=== PATIENT | male | born 1995 | race African-American/Black ===

== ENCOUNTER 2022-02-04 20:00 | Emergency (ER) | payer OTHER, SELFPAY ==
--- NOTE | ~2022-02-04 | XR_ITS ---
EXAMINATION: XR ankle RT min 3V DATE: 02/04/2022 21:00 INDICATION: Right ankle injury and pain. TECHNIQUE: 4 views of right ankle were obtained. COMPARISON: None. FINDINGS: Bone alignment is normal. There is a chip fracture of lateral process of talus. Joint space s are normal. There are enthesophytes at the posterior and plantar aspects of calcaneal tuberosity. A nkle soft tissue swelling is noted. IMPRESSION: 1. Chip fracture of lateral process of talus. Reviewed, dictated and finalized at location A.
[2022-02-04 20:03] VITALS: BP 158/107; PULSE 80; RESP 16; TEMP 37.2; O2SAT 100
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
[2022-02-04] MEDS: ACETAMINOPHEN 325 MG TABLET 650 MG PO (21:38)
[2022-02-04] MEDS: IBUPROFEN 600 MG TABLET PO (21:38)
--- NOTE | 2022-02-04 22:18 | PC.NURSE ---
Right Ankle Short leg OCL applied. PMI distally. ERP evlautated pt tolerated well. Educated on signs of compression syndrome.
== END 2022-02-04 22:35 | disposition home or self-care (01) ==
PROVIDERS: Emergency Provider Emergency Medicine
DX: S92.141A Displaced dome fracture of right talus, initial encounter for closed fracture (principal); V49.40XA Driver injured in collision with unspecified motor vehicles in traffic accident, initial encounter
CPT/HCPCS: 29515; 73610; 99284; A9270

== ENCOUNTER 2023-04-05 11:00 | Emergency (ER) | payer BC, SELFPAY ==
[2023-04-05] VITALS (22 sets, daily range): BP systolic 161–212; BP diastolic 97–140; PULSE 59–88; RESP 13–24; TEMP 36.2–36.8; O2SAT 93–100
--- NOTE | ~2023-04-05 | XR_ITS ---
XR chest 2V DATE: 04/05/2023 14:16 INDICATION: Shortness of breath, hypertension TECHNIQUE: AP and lateral views COMPARISON: None FINDINGS: Heart size is within normal range. No hilar or mediastinal enlargement. No pulmonary infilt rate or consolidation, pleural effusion or pulmonary vascular congestion or pneumothorax is detected. Slight thoracic levoscoliosis. IMPRESSION: No active cardiopulmonary disease Reviewed, dictated and finalized at location L. R SPECIALIST
--- NOTE | 2023-04-05 13:41 | ECG_ITS ---
Measurements Intervals [place] Rate: 66 P: 38 WA: 173 QRS: -33 QRSD: 96 T: 36 QT: 373 QTc: 392 Interpretive Statements SINUS RHYTHM VENTRICULAR PREMATURE COMPLEX LEFT AXIS DEVIATION VOLTAGE CRITERIA FOR LVH BORDERLINE R WAVE PROGRESSION, ANTERIOR LEADS BASELINE ARTIFACT- II, III, AVL BORDERLINE ECG NO PREVIOUS ECG AVAILABLE FOR COMPARISON Electronically Signed On 04-05-2023 14:58:17 [employer] by Garfield Marshall D.O.
--- NOTE | 2023-04-05 13:43 | ED.GENADULT ---
HPI - General Adult General Chief complaint: Recheck/Abnormal Lab/Rx Stated complaint: high BP at PCP office today (no history) Time Seen by Provider: 04/05/23 19:14 History of Present Illness HPI narrative: Grey Bhagat is a 27 y/o male who presents today from his PCP office to be evaluated for his elevated b/p. Patient does not take any mediations daily went to his PCP appointment today and his b/p was elevated. Denies chest pain/ SOB/ vision changes/ headache. Related Data Home Medications Medication Instructions Recorded Confirmed ibuprofen 100 mg/5 mL oral 400 mg PO QID 02/11/22 03/11/22 suspension Allergies Allergy/AdvReac Type Severity Reaction Status Date / Time No Known Allergies Allergy Verified 03/11/22 13:49 [facility] Family History Family History (Updated 02/11/22 @ 11:51 by Marylou Montano MA) Unknown Cancer Social History Social History (Updated 03/11/22 @ 13:50 by Marylou Montano MA) Smoking status: Never smoker Alcohol intake: never Substance use: never Lack of Transportation: No Lack of Food: Sometimes True Current Housing: Decline to Answer Concerned About Future Housing: No Difficulty Paying Gas/Electric Bills: No Difficulty Paying for Meds: No Currently Unemployed: YES Education: Associate Degree Difficulty w/ Childcare or Family Care: No Course Vital Signs Vital signs: Vital Signs Temperature 36.2 C L 04/05/23 11:09 Pulse Rate 88 04/05/23 11:09 Respiratory Rate 18 04/05/23 11:09 Blood Pressure 183/129 H 04/05/23 11:09 Pulse Oximetry 100 04/05/23 11:09 Oxygen Delivery Room Air 04/05/23 11:09 Temperature 36.8 C 04/05/23 14:40 Pulse Rate 80 04/05/23 21:50 Respiratory Rate 19 04/05/23 21:50 Blood Pressure 161/100 H 04/05/23 21:50 Pulse Oximetry 100 04/05/23 21:50 Oxygen Delivery Room Air 04/05/23 11:09 Medical Decision Making Vital Signs Vital Signs: Vital Signs Temperature 36.2 C L 04/05/23 11:09 Pulse Rate 88 04/05/23 11:09 Respiratory Rate 18 04/05/23 11:09 Blood Pressure 183/129 H 04/05/23 11:09 Pulse Oximetry 100 04/05/23 11:09 Oxygen Delivery Room Air 04/05/23 11:09 Temperature 36.8 C 04/05/23 14:40 Pulse Rate 80 04/05/23 21:50 Respiratory Rate 19 04/05/23 21:50 Blood Pressure 161/100 H 04/05/23 21:50 Pulse Oximetry 100 04/05/23 21:50 Oxygen Delivery Room Air 04/05/23 11:09 Lab Data 04/05/23 14:59 04/05/23 15:00 Labs: Lab Results 04/05/23 04/05/23 Range/Units 14:59 15:00 WBC 5.1 (4.5-10.0) K/mm3 RBC 6.02 (4.6-6.20) M/mm3 Hgb 15.7 (14.0-18.0) g/dL Hct 48.9 (42.0-52.0) % MCV 81.2 (80-100) fl MCH 26.1 (26-34) pg MCHC 32.1 (32-36) g/dl RDW 13.0 (11.5-14.5) % Plt Count 257 (150-375) k/mm3 MPV 9.8 (7.4-10.4) fl Immature Gran % (Auto) 0.4 (0-0.5) % Neut % (Auto) 42.5 L (45.5-73.1) % Lymph % (Auto) 37.5 (18.3-44.2) % [place] % (Auto) 17.6 H (2.6-8.5) % Eos % (Auto) 1.4 (0-4.4) % Baso % (Auto) 0.6 (0.2-1.2) % Lymph # (Auto) 1.92 (0.9-3.2) K/mm3 [place] # (Auto) 0.9 H (0.1-0.6) K/mm3 Eos # (Auto) 0.1 (0-0.3) K/mm3 Baso # (Auto) 0.0 (0.0-0.1) K/mm3 Abs Immat Gran (auto) 0.02 (0.00-0.031) K/mm3 Absolute Neuts (auto) 2.2 (1.3-6.7) K/mm3 Absolute Nucleated RBC 0.0 (0.0-0.012) K/mm3 Nucleated RBC % 0.0 (0.0-0.2) % Sodium Cancelled 141 Potassium Cancelled 3.7 Chloride Cancelled 103 Carbon Dioxide Cancelled 27 Anion Gap Cancelled 11 BUN Cancelled 11 Creatinine Cancelled 1.10 Estim Creat Clear Calc Cancelled 121 Estimated GFR Cancelled > 60 Glucose Cancelled 92 Calcium Cancelled 8.8 Total Bilirubin Cancelled 0.9 AST Cancelled 39 ALT Cancelled 25 Alkaline Phosphatase Cancelled 54 Troponin I < 0.012 (0.000-0.034) ng/mL Total Protein Cancelled 9.0 H Albumin Ca
[2023-04-05 15:15] LABS: Alanine Aminotransferase 25 U/L (6-50); Albumin Level 4.6 g/dL (3.5-5.1); Alkaline Phosphatase 54 U/L (38-126); Anion Gap 11 mmol/L (8-16); Aspartate Amino Transferase 39 U/L (17-59); Bilirubin,Total 0.9 mg/dL (0.2-1.3); Blood Urea Nitrogen 11 mg/dL (9-20); Calcium 8.8 mg/dL (8.4-10.2); Carbon Dioxide 27 mmol/L (22-30); Chloride 103 mmol/L (98-107); Estimated CRCL calculation 121 ml/min; Estimated Glomerular Filt Rate > 60; Glucose 92 mg/dL (65-110); Lipase 55 U/L (23-300); Potassium 3.7 mmol/L (3.4-5.0); Sodium 141 mmol/L (137-145)
[2023-04-05 15:18] LABS: Basophils Percent Auto 0.6 % (0.2-1.2); Eosinophils Absolute Auto 0.1 K/mm3 (0-0.3); Eosinophils Percent Auto 1.4 % (0-4.4); Hematocrit 48.9 % (42.0-52.0); Hemoglobin 15.7 g/dL (14.0-18.0); Immature Granulocyte Absolute 0.02 K/mm3 (0.00-0.031); Immature Granulocyte Percent A 0.4 % (0-0.5); Lymphocytes Absolute Auto 1.92 K/mm3 (0.9-3.2); Lymphocytes Percent Auto 37.5 % (18.3-44.2); Mean Corpuscular HGB Conc 32.1 g/dl (32-36); Mean Corpuscular Hemoglobin 26.1 pg (26-34); Mean Corpuscular Volume 81.2 fl (80-100); Mean Platelet Volume 9.8 fl (7.4-10.4); Monocytes Absolute Auto 0.9 K/mm3 (0.1-0.6); Monocytes Percent Auto 17.6 % (2.6-8.5); Neutrophils Absolute Auto 2.2 K/mm3 (1.3-6.7); Neutrophils Percent Auto 42.5 % (45.5-73.1); Platelet Count Result 257 k/mm3 (150-375); Red Blood Count 6.02 M/mm3 (4.6-6.20); White Blood Count 5.1 K/mm3 (4.5-10.0)
[2023-04-05 15:27] LABS: Troponin I < 0.012 ng/mL (0.000-0.034)
--- NOTE | 2023-04-05 19:55 | ED.GENADULT ---
HPI - General Adult General Chief complaint: Recheck/Abnormal Lab/Rx Stated complaint: high BP at PCP office today (no history) Time Seen by Provider: 04/05/23 19:14 History of Present Illness HPI narrative: Pt sent to the ER byhis PCP office. He saw the provider today for the first time and his blood pressure was elevated. He was told to come to the ER to get it down then they will see him on Tuesday this week. He denies symptoms. He has had hypertension for awhile but unsure how long. 6 months ago he went to the dentist and was told his pressure was elevated but he did not follow up Related Data Home Medications Medication Instructions Recorded Confirmed ibuprofen 100 mg/5 mL oral 400 mg PO QID 02/11/22 03/11/22 suspension Allergies Allergy/AdvReac Type Severity Reaction Status Date / Time No Known Allergies Allergy Verified 03/11/22 13:49 Review of Systems Review of Systems: pt denies all ROS PMFSH Family History Family History (Updated 02/11/22 @ 11:51 by Marylou Montano MA) Unknown Cancer Social History Social History (Updated 03/11/22 @ 13:50 by Marylou Montano MA) Smoking status: Never smoker Alcohol intake: never Substance use: never Lack of Transportation: No Lack of Food: Sometimes True Current Housing: Decline to Answer Concerned About Future Housing: No Difficulty Paying Gas/Electric Bills: No Difficulty Paying for Meds: No Currently Unemployed: YES Education: Associate Degree Difficulty w/ Childcare or Family Care: No Exam Narrative: GENERAL: Well-appearing, well-nourished, and in no acute distress. HEAD: Normocephalic, atraumatic. EYES: PERRLA and EOMI. ENT: Nares clear, no rhinorrhea or epistaxis. Mucous membranes moist. NECK: Supple. CHEST: Clear to auscultation. No respiratory distress. HEART: Regular rate and rhythm. ABDOMEN: Soft, nontender, nondistended. EXTREMITIES: Normal range of motion. No edema. SKIN: Warm, dry, no rash. NEURO: No focal deficits. Alert and oriented x3. PSYCH: Normal mood and affect. Course Course Emergency Course: BP very elevated at triage. He is asymptomatic consistent with chronic HTN. Labs including creatinine normal. amlodipine and hydralazine ordered. will d/c once bp under 180/100 21:36 - BP improved and will d/c Vital Signs Vital signs: Vital Signs Temperature 36.2 C L 04/05/23 11:09 Pulse Rate 88 04/05/23 11:09 Respiratory Rate 18 04/05/23 11:09 Blood Pressure 183/129 H 04/05/23 11:09 Pulse Oximetry 100 04/05/23 11:09 Oxygen Delivery Room Air 04/05/23 11:09 Temperature 36.8 C 04/05/23 14:40 Pulse Rate 65 04/05/23 18:53 Respiratory Rate 17 04/05/23 18:53 Blood Pressure 212/129 H 04/05/23 19:05 Pulse Oximetry 100 04/05/23 18:53 Oxygen Delivery Room Air 04/05/23 11:09 Medical Decision Making Vital Signs Vital Signs: Vital Signs Temperature 36.2 C L 04/05/23 11:09 Pulse Rate 88 04/05/23 11:09 Respiratory Rate 18 04/05/23 11:09 Blood Pressure 183/129 H 04/05/23 11:09 Pulse Oximetry 100 04/05/23 11:09 Oxygen Delivery Room Air 04/05/23 11:09 Temperature 36.8 C 04/05/23 14:40 Pulse Rate 65 04/05/23 18:53 Respiratory Rate 17 04/05/23 18:53 Blood Pressure 212/129 H 04/05/23 19:05 Pulse Oximetry 100 04/05/23 18:53 Oxygen Delivery Room Air 04/05/23 11:09 Lab Data 04/05/23 14:59 04/05/23 15:00 Labs: Lab Results 04/05/23 04/05/23 Range/Units 14:59 15:00 WBC 5.1 (4.5-10.0) K/mm3 RBC 6.02 (4.6-6.20) M/mm3 Hgb 15.7 (14.0-18.0) g/dL Hct 48.9 (42.0-52.0) % MCV 81.2 (80-100) fl MCH 26.1 (26-34) pg MCHC 32.1 (32-36) g/dl RDW 13.0 (11.5-14.5) % Plt Count 257 (150-375) k/mm3 MPV 9.8 (7.4-10.4) fl Immature Gran % (Auto) 0.4 (0-0.5) % Neut % (Auto) 42.5 L (45.5-73.1) % Lymph % (Auto) 37.5 (18.3-44.2) % [place] % (Auto) 17.6 H
[2023-04-05] MEDS: amLODIPine BESYLATE 5 MG TABLET 10 MG PO (20:19)
[2023-04-05] MEDS: hydrALAZINE HCL 25 MG TABLET PO (20:19)
== END 2023-04-05 21:50 | disposition home or self-care (01) ==
PROVIDERS: Nurse Practitioner Family; Emergency Provider Emergency Medicine
DX: I10 Essential (primary) hypertension (principal)
CPT/HCPCS: 36415; 71046; 80053; 83690; 84484; 85025; 93005; 99284; A9270